=== PATIENT | female | born 1945 | race Caucasian/White ===

== ENCOUNTER 2017-05-19 19:02 | Observation (INO) ==
[2017-05-19] MEDS ORDERED: 0.9 % Sodium Chloride 1,000 ML IVC ONE (19:30)
[2017-05-19] MEDS ORDERED: Acetaminophen 325 MG TABLET PO ONE (19:30)
--- NOTE | 2017-05-19 19:39 | Emergency Department Note ---
Disposition Clinical Impression: Chest pain, Weakness, Weight loss, Lightheaded Disposition: Admitted As Inpatient Condition: Fair Referrals: NONE,PCP [Non-Partnered Physician] - Forms: ED Satisfaction Letter Time of Disposition: 21:06 Weakness HPI - General Chief complaint: ED Weakness Stated complaint: just do not feel good Time Seen by Provider: 05/19/17 19:14 Source: patient Mode of arrival: ambulatory Limitations: no limitations Nursing Notes Reviewed: Yes Vital Signs Reviewed: Yes - History of Present Illness HPI Narrative: Patient presents to the ED with multiple complaints. Patient reports no significant past medical history and takes no daily medications. She states that she has a history of atrial fibrillation for which she was cardioverted out of one year ago. He states that over the last 2 weeks she has felt like she was in A. fib again. She complains of generalized weakness, fatigue, 30 pound weight loss over the last 3 weeks. She states that she started taking prednisone 2 weeks ago for poison margy rash and since taking the prednisone. Her symptoms have worsened. She complains of feeling lightheaded and having a sound in her head gets louder when "something is not right with my body". She also complains of intermittent, little headaches" in which she has never had headaches before. These are poorly localized and she is really unable to elaborate any further other than saying that her head hurts at times. She had no changes in vision or fever. She has had some intermittent chest "fullness" that is midsternal, nonradiating, exertional. No current pain. She short of breath at baseline and no different than usual. She complains of intermittent, crampy lower abdominal pain at times and had several episodes of nonbloody diarrhea last week. She does complain of some nausea but no vomiting. She states that she has back pain and that flares up at times. She states that she just does not feel right and she knows something is wrong, but she just does not know what it is. Pain Scale: 0 - Related Data Home Medications Medication Instructions Recorded Confirmed Aspirin Enteric Coated [Aspirin EC] 81 mg PO DAILY 08/20/15 05/19/17 Cinnamon Bark [Cinnamon] 500 mg PO DAILY 08/20/15 05/19/17 [place] Oil/[place]-3 Fatty Acids 1 each PO DAILY 08/20/15 05/19/17 [Fish Oil 500 mg Softgel] TraMADol [Ultram] 50 mg PO BID PRN 08/20/15 05/19/17 Ubidecarenone [Co Q-10] 10 mg PO DAILY 08/20/15 05/19/17 Calcium Carbonate/Vitamin D3 1 each PO DAILY 05/19/17 05/19/17 [Calcium 500-Vit D3 200 Tablet] Esomeprazole Magnesium [Nexium 22.3 mg PO DAILY 05/19/17 05/19/17 24Hr] Multivitamin [Multi-Day Vitamins] 1 each PO DAILY 05/19/17 05/19/17 Allergies Allergy/AdvReac Type Severity Reaction Status Date / Time No Known Allergies Allergy Verified 08/20/15 15:24 All systems ED: reviewed and negative except as stated. Constitutional: Reports: weakness, weight change Cardiovascular: Reports: chest pain, dyspnea on exertion Respiratory: Reports: dyspnea Gastrointestinal: Reports: abdominal pain, nausea, diarrhea Musculoskeletal: Reports: back pain Neurological: Reports: headache Psychiatric: Reports: anxiety Endocrine: Reports: fatigue Past Medical History - Past Medical History Medical history: Reports: diabetes, GERD Surgical history: Reports: other Psychiatric history: Reports: no psych history - Social History Smoking Status: Never smoker Smokeless Tobacco Status: No Alcohol use: Reports: none Drug use: Reports: none Physical Exam - General Limitations: no limitations General appearance: alert, anxious - Head Head exam: atraumatic, normocephalic, normal inspection - Eye Eye exam: Present: normal appearance, PERRL, EOMI - ENT ENT exam: normal exam, normal oropharynx, mucous membranes dry - Neck Neck exam: Present: normal inspection, full ROM, trachea midline - Chest Chest inspection: Present: normal inspection, symmetric chest wall rise - Respiratory Respiratory exam: Present: normal lung sounds bilaterally - Cardiovascular Cardiovascular exam: Present: regular rate, normal rhythm, normal heart sounds - Abdominal Exam Abdominal exam: Present: soft, Non-Tender, other (obese). Absent: tenderness, distention, guarding, rebound, rigidity - Extremities Exam Extremities exam: Present: normal inspection, full ROM. Absent: tenderness - Neurological Exam Neurological exam: Present: alert, oriented X3, CN II-XII intact - Expanded Neurological Exam Patient oriented to: Present: person, place, time Speech: Present: fluid speech Cranial nerves: EOM function (II, III, IV, ): Normal, facial sensation (V): Normal, facial palsy (VII): Normal, spinal accessory function (XI): Normal, tongue deviation (XII): Normal Cerebellar function: heel to guzmán: Normal Motor strength - LUE: 5/5 Motor strength - RUE: 5/5 Motor strength - LLE: 5/5 Motor strength - RLE: 5/5 Upper motor neuron exam: palma neglect: Absent bilaterally, pronator drift: Absent bilaterally Sensory exam upper extremity: light touch: Normal Sensory exam lower extremity: light touch: Normal Coma Scale Eye Opening: Spontaneous Coma Scale Motor Response: Obeys Commands Coma Scale Verbal Response: Oriented Coma Scale Total: 15 - Psychiatric Psychiatric exam: Present: normal affect, normal mood - Skin Skin exam: Present: warm, dry, intact, normal color Course Course Narrative: 71 y/o F p/w CP, fatigue, weight loss, and lightheaded. Neuro exam NL. Cardiac workup, head CT and admit Vital Signs Temperature 98.0 F 05/19/17 19:03 Pulse Rate 88 05/19/17 19:03 Respiratory Rate 20 05/19/17 19:03 Blood Pressure 156/85 05/19/17 19:03 O2 Sat by Pulse Oximetry 99 05/19/17 19:03 Temperature 98.0 F 05/19/17 19:03 Pulse Rate 74 05/19/17 20:30 Respiratory Rate 20 05/19/17 19:03 Blood Pressure 126/73 05/19/17 20:30 O2 Sat by Pulse Oximetry 99 05/19/17 20:30 Oxygen Delivery Oxygen Delivery Room Air Weakness - Medical Records Medical records reviewed: Yes I reviewed the patient's medical records. - Lab Data Lab results reviewed: Yes I reviewed the patient's lab results. Result diagrams: 05/19/17 20:04 05/19/17 20:04 Lab Results 05/19/17 05/19/17 05/19/17 Range/Units 20:04 20:04 20:04 WBC 6.5 (4.3-11.1) K/mcL RBC 4.34 (3.82-4.97) M/mcL Hgb 14.4 (11.5-15.4) g/dL Hct 43.2 (35.3-44.9) % MCV 99.5 (83.0-100.0) fL MCH 33.2 (28.0-33.3) pg MCHC 33.3 (31.6-35.5) g/dL RDW 12.5 (11.5-14.5) % Plt Count 240 (140-400) K/mcL MPV 9.8 (9.4-12.4) fL Immature Gran % 0.2 (0-4) % Seg Neutrophils % 58.0 % Lymphocytes % 29.1 % Monocytes % 10.1 % Eosinophils % 2.3 % Basophils % 0.3 % Neutrophils # 3.8 (1.6-8.9) K/mcL Lymphocytes # 1.9 (0.6-4.6) K/mcL Monocytes # 0.7 (0.0-1.3) K/mcL Eosinophils # 0.2 (0.0-0.6) K/mcL Basophils # 0.0 (0.0-0.2) K/mcL Sodium 140 (136-145) mEq/L Potassium 4.1 (3.5-4.5) mEq/L Chloride 106 (98-109) mEq/L Carbon Dioxide 25 (19-29) mEq/L BUN 14 (7-20) mg/dL Creatinine 1.08 (0.57-1.11) mg/dL Est GFR ( Amer) > 60 (> 60) Est GFR (Non-Af Amer) 50 L (> 60) BUN/Creatinine Ratio 13 (6-26) Glucose 98 (70-99) mg/dL Calculated Osmolality 290 (280-300) Calcium 10.3 (8.6-10.8) mg/dL Ionized Calcium 1.19 (1.15-1.35) mmol/L Phosphorus 2.7 (2.3-4.7) mg/dL Magnesium 1.8 (1.6-2.6) mg/dL Total Bilirubin 0.4 (0.2-1.2) mg/dL AST 33 (5-34) Units/L ALT 28 (0-55) Units/L Alkaline Phosphatase 77 (38-126) Units/L Troponin I 0.00 (0-0.03) ng/mL Serum Total Protein 7.5 (6.0-8.3) g/dL Albumin 3.8 (3.5-5.0) g/dL Globulin 3.7 H (2.4-3.5) g/dL Albumin/Globulin Ratio 1.0 L (1.1-2.2) Lipase (8-78) Units/L Urine Color (Yellow) Urine Clarity (Clear) Urine pH (5.0-8.0) pH Units Ur Specific [place] (1.010-1.025) Urine Protein (Neg-Trace) mg/dL Urine Glucose (UA) (Normal) mg/dL Urine Ketones (Negative) mg/dL Urine Blood (Negative) Urine Nitrite (Negative) Urine Bilirubin (Negative) Urine Urobilinogen (Normal) mg/dL Ur Leukocyte Esterase (Negative) Urine Microscopic RBC (0-3) per hpf Urine Microscopic WBC (0-3) per hpf Ur Squamous Epith Cells (None-Few) per lpf Urine Bacteria (None-Few) per hpf Hyaline Casts (None-Few) per lpf Ur Culture Indicated? (NO) 05/19/17 05/19/17 Range/Units 20:04 20:10 WBC (4.3-11.1) K/mcL RBC (3.82-4.97) M/mcL Hgb (11.5-15.4) g/dL Hct (35.3-44.9) % MCV (83.0-100.0) fL MCH (28.0-33.3) pg MCHC (31.6-35.5) g/dL RDW (11.5-14.5) % Plt Count (140-400) K/mcL MPV (9.4-12.4) fL Immature Gran % (0-4) % Seg Neutrophils % % Lymphocytes % % Monocytes % % Eosinophils % % Basophils % % Neutrophils # (1.6-8.9) K/mcL Lymphocytes # (0.6-4.6) K/mcL Monocytes # (0.0-1.3) K/mcL Eosinophils # (0.0-0.6) K/mcL Basophils # (0.0-0.2) K/mcL Sodium (136-145) mEq/L Potassium (3.5-4.5) mEq/L Chloride (98-109) mEq/L Carbon Dioxide (19-29) mEq/L BUN (7-20) mg/dL Creatinine (0.57-1.11) mg/dL Est GFR ( Amer) (> 60) Est GFR (Non-Af Amer) (> 60) BUN/Creatinine Ratio (6-26) Glucose (70-99) mg/dL Calculated Osmolality (280-300) Calcium (8.6-10.8) mg/dL Ionized Calcium (1.15-1.35) mmol/L Phosphorus (2.3-4.7) mg/dL Magnesium (1.6-2.6) mg/dL Total Bilirubin (0.2-1.2) mg/dL AST (5-34) Units/L ALT (0-55) Units/L Alkaline Phosphatase (38-126) Units/L Troponin I (0-0.03) ng/mL Serum Total Protein (6.0-8.3) g/dL Albumin (3.5-5.0) g/dL Globulin (2.4-3.5) g/dL Albumin/Globulin Ratio (1.1-2.2) Lipase 20 (8-78) Units/L Urine Color Yellow (Yellow) Urine Clarity Cloudy A (Clear) Urine pH 6.0 (5.0-8.0) pH Units Ur Specific [place] 1.018 (1.010-1.025) Urine Protein Negative (Neg-Trace) mg/dL Urine Glucose (UA) Normal (Normal) mg/dL Urine Ketones Negative (Negative) mg/dL Urine Blood Negative (Negative) Urine Nitrite Negative (Negative) Urine Bilirubin Negative (Negative) Urine Urobilinogen Normal (Normal) mg/dL Ur Leukocyte Esterase Large H (Negative) Urine Microscopic RBC 0-3 (0-3) per hpf Urine Microscopic WBC 15-30 H (0-3) per hpf Ur Squamous Epith Cells Many H (None-Few) per lpf Urine Bacteria None Seen (None-Few) per hpf Hyaline Casts None Seen (None-Few) per lpf Ur Culture Indicated? YES A (NO) - Radiology Data Radiology results reviewed: Yes I reviewed the patient's radiology results. - EKG Data EKG attestation: Yes I reviewed and interpreted this EKG. EKG results narrative: Sinus rhythm, rate 80, MO interval 169, QRS 88, QTC 399, borderline left axis deviation, no acute ischemic changes from previous on 06/02/16 S.B.A.R. - S.B.A.R. Situation: Demographics, MOA Background: Presenting Complaint, Relevant PMH, Meds, & Allergies Assessment: Vital Signs, Course and respsone to treatment, Exam Concerns, Patient/Family Expectation, Pertinant Lab Results, Outstanding Labs Recommendation: Barrier(s) to disposition, Recommendation based on pending studies, treatments, or consults [facility] Report Given to: Dr. Yvette Petersen Repor Time: 21:06 Attestation Statement - Attestation Attestation: I, Misael Wilson, examined this patient and my medical decision-making was reviewed with the TOURIST ESCORT/PA/Advanced Practice Nurse/Resident Physician. I agree with the documented findings, disposition and treatment plan as described except to the extent set forth below. 71-year-old female presents with concerns of generalized malaise, weakness, fatigue and intermittent chest pressure 1 week. Patient states the pain occurs intermittently during the day and generally resolves with rest at night. Patient reports 20 pound history of weight loss over the past 2 months without dieting. Patient states she was started on prednisone 1 week ago for poison margy and seems to feel that this is when her symptoms worsened. Patient reports headache intermittently over the past week as well. Denies focal neurologic weakness. CT of the head and chest x-ray did not reveal acute pathology. EKG showed normal sinus rhythm with rate of 80 without evidence of STEMI or ischemia or other arrhythmia. Laboratory results are pending at this time. Patient will likely be admitted to the hospital for further care and evaluation of weight loss and chest pain.
[2017-05-19 20:23] LABS: Bilirubin,Urine Negative (Negative); Blood,Urine Negative (Negative); Clarity,Urine Cloudy (Clear); Color,Urine Yellow (Yellow); Glucose,Urine (UA) Normal (Normal); Ketones,Urine Negative (Negative); Leukocyte Esterase,Urine Large (Negative); Nitrite,Urine Negative (Negative); Protein,Urine Negative (Neg-Trace); Specific Gravity,Urine 1.018 (1.010-1.025); Urobilinogen,Urine Normal (Normal)
[2017-05-19 20:24] LABS: Bacteria,Urine None Seen per hpf (None-Few); Hyaline Casts,Urine None Seen per lpf (None-Few); RBC,Urine 0-3 per hpf (0-3); Squamous Epithelial Cell,Urine Many per lpf (None-Few); WBC,Urine 15-30 per hpf (0-3)
[2017-05-19 20:31] LABS: Basophils % 0.3 %; Eosinophils # 0.2 K/mcL (0.0-0.6); Eosinophils % 2.3 %; Hematocrit 43.2 % (35.3-44.9); Hemoglobin 14.4 g/dL (11.5-15.4); Immature Granulocytes % 0.2 % (0-4); Lymphocytes # 1.9 K/mcL (0.6-4.6); Lymphocytes % 29.1 %; Mean Corpuscular HGB Conc 33.3 g/dL (31.6-35.5); Mean Corpuscular Hemoglobin 33.2 pg (28.0-33.3); Mean Corpuscular Volume 99.5 fL (83.0-100.0); Mean Platelet Volume 9.8 fL (9.4-12.4); Monocytes # 0.7 K/mcL (0.0-1.3); Monocytes % 10.1 %; Neutrophils # 3.8 K/mcL (1.6-8.9); Platelet Count 240 K/mcL (140-400); Red Blood Count 4.34 M/mcL (3.82-4.97); Red Cell Distribution Width 12.5 % (11.5-14.5)
[2017-05-19 20:39] LABS: Ionized Calcium 1.19 mmol/L (1.15-1.35)
[2017-05-19 20:50] LABS: Alanine Aminotransferase 28 Units/L (0-55); Albumin 3.8 g/dL (3.5-5.0); Alkaline Phosphatase 77 Units/L (38-126); Aspartate Amino Transferase 33 Units/L (5-34); BUN/Creatinine Ratio 13 (6-26); Bilirubin,Total 0.4 mg/dL (0.2-1.2); Blood Urea Nitrogen 14 mg/dL (7-20); Calcium 10.3 mg/dL (8.6-10.8); Carbon Dioxide 25 mEq/L (19-29); Chloride 106 mEq/L (98-109); Globulin 3.7 g/dL (2.4-3.5); Glucose 98 mg/dL (70-99); Magnesium 1.8 mg/dL (1.6-2.6); Osmolality,Calculated 290 (280-300); Phosphorous 2.7 mg/dL (2.3-4.7); Potassium 4.1 mEq/L (3.5-4.5); Sodium 140 mEq/L (136-145); Total Protein 7.5 g/dL (6.0-8.3); eGFR For African Americans > 60 (> 60); eGFR For Non-African Americans 50 (> 60)
[2017-05-19] MEDS ORDERED: Aspirin 325 MG TABLET PO ONE (21:01)
[2017-05-19 21:12] LABS: Thyroid Stimulating Hormone 1.221 mcIU/mL (0.350-4.840)
[2017-05-19] MEDS ORDERED: traMADol 50 MG TABLET PO PRN (22:09)
[2017-05-19] MEDS ORDERED: Naloxone 0.4 MG/ML INJ IVP PRN (22:10)
--- NOTE | 2017-05-19 22:16 | Internal Med History&Physical ---
Date of Encounter: 05/19/17 Time of Encounter: 22:13 Assessment and Plan (1) Lightheaded Current visit: Yes Status: Acute See H/P (constellation of symptoms - hissing sound, lightheadness, anxiety/ nervous), could be related to prednisone which is now discontinued. Plan to R/o intermittent arrhythmias, start tele , r/o arrhythmias. consult card to eval for possible holter if inpatient tele be uneventful (2) Weight loss Current visit: Yes Status: Acute uncertain etiology, check TSH, FT4 Internal Medicine - H&P: HPI Chief complaint: feeling bad History of present illness: Ms. Chavez is a 71 year old female who reports a hx of AFib s/p ablation on 81 ASA who presents with 1-2 week hx of not feeling well after completing a tapering course of prednisone for poison margy last week. She reported a constellation of non-specific symptoms including feeling nervous/anxious, hissing sound in her ears, sensation of chest fullness and light headedness. Also reports that stomach feels weird from prednisone. Importantly, she reported that her current symptoms felt similar to her prior symptoms when she developed arrhythmia. She reports being established with the cardiology group locally. EKG reviewed by self with rate 80, nSR On review, she reports non-intentional weight loss of 20 lbs in the last 3 months Past Med Surg Social Fam HX - Past Medical History Medical history: diabetes, GERD Psychiatric history: no psych history - Past Surgical History Surgical History: other - Social History Smoking Status: Never smoker Smokeless Tobacco Status: No Alcohol use: none Drug use: none Internal Medicine - H&P: Meds Aspirin Enteric Coated [Aspirin EC] 81 mg PO DAILY 08/20/15 [History] Cinnamon Bark [Cinnamon] 500 mg PO DAILY 08/20/15 [History] [place] Oil/[place]-3 Fatty Acids [Fish Oil 500 mg Softgel] 1 each PO DAILY [History] TraMADol [Ultram] 50 mg PO BID PRN 08/20/15 [History] Ubidecarenone [Co Q-10] 10 mg PO DAILY 08/20/15 [History] Calcium Carbonate/Vitamin D3 [Calcium 500-Vit D3 200 Tablet] 1 each PO DAILY 08/25 [History] Esomeprazole Magnesium [Nexium 24Hr] 22.3 mg PO DAILY 05/19/17 [History] Multivitamin [Multi-Day Vitamins] 1 each PO DAILY 05/19/17 [History] Allergies No Known Allergies Allergy (Verified 08/20/15 15:24) All Systems PM: A 10-system review of systems was performed and is negative for pertinent findings except as documented above in the HPI. Review of systems: ROS 14 point review of systems reviewed as best as possible given presentation. Pertinent positive or negative as per HPI or otherwise reviewed as negative - Constitutional Vitals: Temp Pulse Resp BP Pulse Ox 98.0 F 74 20 141/71 99 05/19/17 19:03 05/19/17 20:30 05/19/17 22:03 05/19/17 22:03 05/19/17 20:30 Exam: General - AAO x 3 Psych - Appropriate affect/speech. No agitation Eyes - JOEL. Eye lids intact. No scleral icterus ENT - Oral mucosa pink, dentition intact. External ear clear/dry/intact. No thyromegaly Heart - Sinus. RRR. S1 and S2 present. No added HS/murmurs appreciated. No elevated JVD appreciated. No calf swellings/erythema Lung - Adequate air entry b/l, No crackes/wheezes appreciated GI - Soft, non-tender. No hepatosplenomegaly/ascites. BS+ - No CVA/suprapubic tenderness or palpable bladder distension Skin - Intact. No rash/petechiae/ecchymosis. Warm extremities MSK - Joints with normal ROM. No joint swellings Internal Med - H&P Results - Labs CBC & Chem 7: 05/19/17 20:04 05/19/17 20:04
[2017-05-19] MEDS ORDERED: clonazePAM 1 MG TABLET PO ONE (23:23)
[2017-05-20] MEDS: 0.9 % Sodium Chloride 1,000 ML IVC SCH ×3 (00:42→21:53)
[2017-05-20 05:32] LABS: Basophils % 0.6 %; Eosinophils # 0.2 K/mcL (0.0-0.6); Eosinophils % 3.8 %; Hematocrit 38.8 % (35.3-44.9); Hemoglobin 12.9 g/dL (11.5-15.4); Immature Granulocytes % 0.4 % (0-4); Lymphocytes # 1.8 K/mcL (0.6-4.6); Lymphocytes % 38.4 %; Mean Corpuscular HGB Conc 33.2 g/dL (31.6-35.5); Mean Corpuscular Hemoglobin 32.9 pg (28.0-33.3); Mean Platelet Volume 9.6 fL (9.4-12.4); Monocytes # 0.5 K/mcL (0.0-1.3); Monocytes % 11.5 %; Neutrophils # 2.1 K/mcL (1.6-8.9); Platelet Count 227 K/mcL (140-400); Red Blood Count 3.92 M/mcL (3.82-4.97); Red Cell Distribution Width 12.5 % (11.5-14.5); Segmented Neutrophils % 45.3 %
[2017-05-20 05:46] LABS: BUN/Creatinine Ratio 12 (6-26); Blood Urea Nitrogen 11 mg/dL (7-20); Calcium 9.1 mg/dL (8.6-10.8); Carbon Dioxide 25 mEq/L (19-29); Chloride 111 mEq/L (98-109); Glucose 99 mg/dL (70-99); Magnesium 1.7 mg/dL (1.6-2.6); Osmolality,Calculated 293 (280-300); Potassium 3.8 mEq/L (3.5-4.5); Sodium 142 mEq/L (136-145); eGFR For African Americans > 60 (> 60); eGFR For Non-African Americans > 60 (> 60)
[2017-05-20 06:10] LABS: Thyroid Stimulating Hormone 1.473 mcIU/mL (0.350-4.840)
[2017-05-20] MEDS: Aspirin Enteric Coated 81 MG Tablet PO SCH (08:00)
[2017-05-20] MEDS: Calcium 500-Vit D3 PO SCH (08:04)
--- NOTE | 2017-05-20 17:52 | Internal Med Progress Note ---
Date of Encounter: 05/20/17 Time of Encounter: 09:30 - Assessment and plan (1) Chest pain Current Visit: Yes Status: Resolved Assessment and plan: Patient currently denies chest pain or shortness of breath but states she continues to feel very anxious and nervous. Telemetry reviewed thus far, normal sinus rhythm, will monitor. Chest x-ray negative. Head CT negative. Troponin negative 2. Will observe overnight as the patient is still symptomatic and possibly discharge tomorrow pending clinical outcomes. (2) Lightheaded Current Visit: Yes Status: Resolved (3) Weight loss Current Visit: Yes Status: Acute Assessment and plan: Patient has unintentionally lost 20 pounds over the past 3 months. Thyroid functioning normal. Unclear etiology. (4) Abnormal urinalysis Current Visit: Yes Status: Ruled-out Assessment and plan: Patient denies dysuria, urine culture negative - Subjective Interval history: Patient seen and examined. On examination, patient sitting upright on the side of her bed stating she has to void. She states she still feels "nervous." She denies shortness of breath or pain at this time. She denies dysuria. - Constitutional Vitals: Temp Pulse Resp BP Pulse Ox 98.1 F 81 16 117/70 91 05/20/17 15:06 05/20/17 15:06 05/20/17 15:06 05/20/17 15:06 05/20/17 15:06 General appearance: Present: A&O X 3, pleasant, no acute distress, answers questions appropriately - Head Head exam: Present: atraumatic, normocephalic - Eye Eye exam: Present: PERRL, conjuntiva pink, sclera anicteric Pupils: Present: PERRL - Neck Neck exam general surgery: Present: supple, trachea midline. Absent: lymphadenopathy - Respiratory Respiratory exam: Present: CTAB. Absent: accessory muscle use, rales, respiratory distress, rhonchi, wheezes - Cardiovascular Cardiovascular exam: Present: RRR, +S1, +S2. Absent: diastolic murmur, gallop, rubs, systolic murmur - GI/Abdominal GI/Abdominal exam: Present: normal bowel sounds, soft, no peritoneal signs. Absent: distended, tenderness - Extremities Exam Extremities exam: Present: warm, radial pulses palpable and symmetrical. Absent : calf tenderness, cyanotic, pedal edema - Neurological Exam Neurological exam: Present: alert, CN II-XII intact, normal gait, oriented X3, no focal deficits, strengths equal and symetr throughout. Absent: pronater drift, facial droop, speech deficit - Psychiatric Psychiatric exam: Present: anxious - Skin Skin exam: Present: dry, intact, pallor, warm Internal Medicine: Result - Labs CBC & Chem 7: 05/20/17 05:01 05/20/17 05:01 Labs: Short CBC 05/20/17 Range/Units 05:01 WBC 4.7 (4.3-11.1) K/mcL Hgb 12.9 D (11.5-15.4) g/dL Hct 38.8 (35.3-44.9) % Plt Count 227 (140-400) K/mcL Neutrophils # 2.1 (1.6-8.9) K/mcL BMP 05/20/17 05:01 Sodium 142 Potassium 3.8 Chloride 111 H Carbon Dioxide 25 BUN 11 Creatinine 0.90 Glucose 99 Calcium 9.1 Consult Discharge Plan - Plan Referrals: Hi Haney MD [Primary Care Provider] -
[2017-05-20] MEDS ORDERED: clonazePAM 1 MG TABLET PO ONE (21:05)
[2017-05-21] MEDS: 0.9 % Sodium Chloride 1,000 ML IVC SCH (04:53)
[2017-05-21 07:44] VITALS: BP 131/80
--- NOTE | 2017-05-21 09:53 | Discharge Summary ---
Date of Encounter: 05/21/17 Time of Encounter: 09:15 - Discharge Diagnosis (1) Chest pain Priority: Primary Status: Resolved Comments: patient has denied chest pain since admission. Telemetry reviewed while admitted , normal sinus rhythm. Chest x-ray negative. Head CT negative. Troponin negative 2. (2) Lightheaded Priority: Primary Status: Resolved (3) Weight loss Priority: Primary Status: Acute Comments: Patient has unintentionally lost 20 pounds over the past 3 months. Thyroid functioning normal. Unclear etiology. followup outpatient (4) Abnormal urinalysis Priority: Primary Status: Ruled-out Comments: Patient denies dysuria, urine culture negative - Discharge Medications Home Medications: Aspirin Enteric Coated [Aspirin EC] 81 mg PO DAILY 08/20/15 [History] Cinnamon Bark [Cinnamon] 500 mg PO DAILY 08/20/15 [History] [place] Oil/[place]-3 Fatty Acids [Fish Oil 500 mg Softgel] 1 each PO DAILY [History] TraMADol [Ultram] 50 mg PO BID PRN 08/20/15 [History] Ubidecarenone [Co Q-10] 10 mg PO DAILY 08/20/15 [History] Calcium Carbonate/Vitamin D3 [Calcium 500-Vit D3 200 Tablet] 1 each PO DAILY 08/25 [History] Esomeprazole Magnesium [Nexium 24Hr] 22.3 mg PO DAILY 05/19/17 [History] Multivitamin [Multi-Day Vitamins] 1 each PO DAILY 05/19/17 [History] Allergies/Adverse Reactions: Allergies No Known Allergies Allergy (Verified 08/20/15 15:24) Procedures/tests Complete & Pending: Procedures Performed prior 72 hours Category Date Time Status ECG 12 lead ECG [ECG] Routine Y 05/21/17 08:25 Ordered Date of admission: 05/19/17 21:50 Primary care physician: Hi Haney MD Discharging clinician: Lidia Crabtree Anticipated date of discharge: 05/21/17 - Patient Status Disposition: Home, Self-Care Condition: Fair Functional capacity at discharge: independent ambulation Overall status at discharge: patient is back to baseline - Discharge Instructions Follow Up With: Hi Haney MD [Primary Care Provider] - Additional Instructions: Follow-up with primary care provider within one to 2 weeks - Diet and Activity Activity: increase activity as tolerated Diet: diabetic diet Hospital course: Ms. Chavez is a 71 year old female past medical history of atrial fibrillation status post ablation on baby aspirin, diabetes, GERD. Patient presented to the emergency department chief complaint of 1-2 week history of not feeling well after completing a tapering course of prednisone for poison margy. Patient endorsed feeling nervous/anxious, hissing sound in her ears, sensation of fullness and lightheadedness. Patient also reported that her stomach felt "weird" from the prednisone. Patient stating that her symptoms. Similar to the last time when she had developed her arrhythmia. Patient also endorsed non- intentional 20 pound weight loss over the past 3 months. Workup in the emergency department unremarkable. Chest x-ray negative. Head CT negative. Patient was admitted to the hospitalist service for further evaluation and management. Patient denied chest pain throughout this admission. Troponins negative 2. On the first day of her admission, patient continued to be anxious but denies symptoms otherwise. She was observed overnight in telemetry was reviewed which revealed normal sinus rhythm. She was able to tolerate a regular diet. Regarding her unintentional weight loss, unclear causation at this time. Thyroid functioning normal, patient endorsing a normal appetite, recommend continued follow up outpatient. She had abnormal urinalysis but denied dysuria and the urine culture was negative. No focal neurological weakness is present on examination. She was discharged home in stable condition with close outpatient follow-up recommended. ITS Impressions Chest X-Ray 05/19/17 19:30 IMPRESSION: No acute abnormality. D/ / Teodoro Nguyen MD / Teodoro Nguyen MD Interpreting Provider: Teodoro Nguyen MD Head CT 05/19/17 19:31 IMPRESSION: No acute intracranial abnormality. D/ / Gene Schneider MD / Geen Schneider MD Interpreting Provider: Gene Schneider MD - Time Spent with Patient Total time spent providing and/or coordinating discharge services: - Constitutional Vitals: Temp Pulse Resp BP Pulse Ox 98.1 F 70 15 131/80 95 05/21/17 07:43 05/21/17 07:43 05/21/17 07:43 05/21/17 07:43 05/21/17 07:43 General appearance: Present: A&O X 3, pleasant, no acute distress, answers questions appropriately - Head Head exam: Present: atraumatic, normocephalic - Eye Eye exam: Present: PERRL, conjuntiva pink, sclera anicteric Pupils: Present: PERRL - Neck Neck exam general surgery: Present: supple, trachea midline. Absent: lymphadenopathy - Respiratory Respiratory exam: Present: CTAB. Absent: accessory muscle use, rales, respiratory distress, rhonchi, wheezes - Cardiovascular Cardiovascular exam: Present: RRR, +S1, +S2. Absent: diastolic murmur, gallop, rubs, systolic murmur - GI/Abdominal GI/Abdominal exam: Present: normal bowel sounds, soft, no peritoneal signs. Absent: distended, tenderness - Extremities Exam Extremities exam: Present: warm, radial pulses palpable and symmetrical. Absent : calf tenderness, cyanotic, pedal edema - Neurological Exam Neurological exam: Present: alert, CN II-XII intact, normal gait, oriented X3, no focal deficits, strengths equal and symetr throughout. Absent: pronater drift, facial droop, speech deficit - Skin Skin exam: Present: dry, intact, normal color, warm
[2017-05-21] MEDS: Calcium 500-Vit D3 PO SCH (10:05)
[2017-05-21] MEDS: Aspirin Enteric Coated 81 MG Tablet PO SCH (10:06)
--- NOTE | 2017-05-21 12:48 | Electrocardiograph Report ---
[place] [id number] Test Date: 2017-05-19 Pat Name: Adrianne Chavez Department: 102 Room: 3B Gender: F Educational Aide: : 1945 Requested By: Anshu Weaver Order Number: [id number] Reading MD: Rosemarie Reed Measurements Intervals [place] Rate: 80 P: 38 PA: 169 QRS: 59 QRSD: 88 T: 64 QT: 362 QTc: 399 Interpretive Statements SINUS RHYTHM Electronically Signed On 05-21-2017 12:46:25 EDT by Rosemarie Reed
== END 2017-05-21 10:20 | disposition home or self-care (01) ==
LOC: 3BNU 19:02 → EMEROO 19:02 → 3BNU 22:03
PROVIDERS: ADMIT Internal Medicine; ATTEND Nurse Practitioner Family

== ENCOUNTER 2017-07-17 03:30 | Observation (INO) ==
[2017-07-17] MEDS ORDERED: 0.9 % Sodium Chloride 1,000 ML IVC ONE ×2 (03:41→07:52)
[2017-07-17 03:49] LABS: Basophils % 0.3 %; Eosinophils # 0.4 K/mcL (0.0-0.6); Eosinophils % 6.3 %; Hematocrit 46.5 % (35.3-44.9); Hemoglobin 15.4 g/dL (11.5-15.4); Immature Granulocytes % 0.3 % (0-4); Lymphocytes # 2.2 K/mcL (0.6-4.6); Lymphocytes % 33.2 %; Mean Corpuscular HGB Conc 33.1 g/dL (31.6-35.5); Mean Corpuscular Hemoglobin 32.5 pg (28.0-33.3); Mean Corpuscular Volume 98.1 fL (83.0-100.0); Mean Platelet Volume 9.5 fL (9.4-12.4); Monocytes # 0.6 K/mcL (0.0-1.3); Monocytes % 9.5 %; Neutrophils # 3.3 K/mcL (1.6-8.9); Platelet Count 299 K/mcL (140-400); Red Blood Count 4.74 M/mcL (3.82-4.97); Red Cell Distribution Width 12.2 % (11.5-14.5); Segmented Neutrophils % 50.4 %
[2017-07-17 04:00] LABS: Prothrombin Time 10.2 Seconds (9.4-12.1)
[2017-07-17 04:02] LABS: Activated Partial Thrombo Time 26.2 Seconds (26.0-36.0)
[2017-07-17 04:08] LABS: Albumin 3.9 g/dL (3.5-5.0); Albumin/Globulin Ratio 1.1 (1.1-2.2); Bilirubin,Total 0.4 mg/dL (0.2-1.2); Calcium 10.3 mg/dL (8.6-10.8); Globulin 3.6 g/dL (2.4-3.5); Total Protein 7.5 g/dL (6.0-8.3)
[2017-07-17 04:09] LABS: Potassium 4.9 mEq/L (3.5-4.5)
[2017-07-17 04:50] LABS: Bilirubin,Urine Negative (Negative); Blood,Urine Negative (Negative); Clarity,Urine Cloudy (Clear); Color,Urine Yellow (Yellow); Glucose,Urine (UA) Normal (Normal); Ketones,Urine Negative (Negative); Leukocyte Esterase,Urine Moderate (Negative); Nitrite,Urine Negative (Negative); PH,Urine 5.5 pH Units (5.0-8.0); Protein,Urine Trace mg/dL (Neg-Trace); Specific Gravity,Urine 1.023 (1.010-1.025); Urobilinogen,Urine Normal (Normal)
[2017-07-17 04:52] LABS: Bacteria,Urine None Seen per hpf (None-Few); Hyaline Casts,Urine None Seen per lpf (None-Few); Squamous Epithelial Cell,Urine Many per lpf (None-Few); WBC,Urine 15-30 per hpf (0-3)
[2017-07-17] MEDS ORDERED: 0.9 % Sodium Chloride 1,000 ML ONE (05:26)
--- NOTE | 2017-07-17 06:04 | Emergency Department Note ---
Disposition Clinical Impression: Syncope and collapse Disposition: Admitted As Inpatient Condition: Good Referrals: Hi Haney MD [Primary Care Provider] - Syncope HPI - General Chief Complaint: ED Syncope Stated Complaint: syncope Time Seen by Provider: 07/17/17 03:33 Source: patient Mode of arrival: ambulatory Limitations: no limitations Nursing Notes Reviewed: Yes Vital Signs Reviewed: Yes - History of Present Illness HPI Narrative: 70-year-old female presents emergency Department with concerns of a syncopal episode. Patient states she was at work, sat down and then became lightheaded and fell to the ground. Patient states that she did not have chest pain or palpitations or shortness of breath prior to syncopized in. She initially states that she did not have history of nausea, vomiting, diarrhea that she had been eating and drinking well. On repeat evaluation patient states that she had a sore throat and had not eaten or drank very well over the past 24 hours. Patient is unclear as to when she had her last cardiac evaluation. - Related Data Home Medications Medication Instructions Recorded Confirmed Aspirin Enteric Coated [Aspirin EC] 81 mg PO DAILY 08/20/15 05/19/17 Cinnamon Bark [Cinnamon] 500 mg PO DAILY 08/20/15 05/19/17 [place] Oil/[place]-3 Fatty Acids 1 each PO DAILY 08/20/15 05/19/17 [Fish Oil 500 mg Softgel] TraMADol [Ultram] 50 mg PO BID PRN 08/20/15 05/19/17 Ubidecarenone [Co Q-10] 10 mg PO DAILY 08/20/15 05/19/17 Calcium Carbonate/Vitamin D3 1 each PO DAILY 05/19/17 05/19/17 [Calcium 500-Vit D3 200 Tablet] Esomeprazole Magnesium [Nexium 22.3 mg PO DAILY 05/19/17 05/19/17 24Hr] Multivitamin [Multi-Day Vitamins] 1 each PO DAILY 05/19/17 05/19/17 Allergies Allergy/AdvReac Type Severity Reaction Status Date / Time No Known Allergies Allergy Verified 08/20/15 15:24 All systems ED: reviewed and negative except as stated. Review of Systems: As Per HPI Constitutional: Reports: weakness. Denies: fever, chills Cardiovascular: Reports: syncope. Denies: chest pain, palpitations Respiratory: Denies: cough, dyspnea, wheezes Gastrointestinal: Denies: abdominal pain, nausea, vomiting Genitourinary: Denies: urgency, dysuria, frequency Past Medical History - Past Medical History Attestation: Yes The following information was validated with the patient. Source: patient Medical history: Reports: diabetes, GERD Surgical history: Reports: other Psychiatric history: Reports: no psych history - Social History Smoking Status: Never smoker Smokeless Tobacco Status: No Alcohol use: Reports: none Drug use: Reports: none Physical Exam General: Alert and in no acute distress Skin: Warm, dry, intact Head: Normocephalic and atraumatic Neck: Supple, trachea midline and no tenderness Cardiovascular: Normal perfusion to bilateral upper and lower extremities. Patient tachycardic with standing Respiratory: CTAB, no wheezing, cough, or respiratory distress Musculoskeletal: Normal strength, no tenderness, swelling or deformity GI: Soft, nontender, nondistended. Bowel sounds present Neuro: A&O to person, place, time and situation. No focal deficits noted on exam Psychiatric: cooperative and appropriate mood and affect. - General Limitations: no limitations General appearance: alert Course Vital Signs Temperature 97.6 F 07/17/17 03:32 Pulse Rate 84 07/17/17 03:32 Respiratory Rate 24 07/17/17 03:32 Blood Pressure 112/82 07/17/17 03:32 O2 Sat by Pulse Oximetry 97 07/17/17 03:32 Temperature 97.6 F 07/17/17 03:32 Pulse Rate 75 07/17/17 05:18 Respiratory Rate 20 07/17/17 05:18 Blood Pressure 125/77 07/17/17 05:18 O2 Sat by Pulse Oximetry 98 07/17/17 05:18 Oxygen Delivery Oxygen Delivery Room Air Syncope - [facility] Narrative Medical decision making narrative: Likely patient's symptoms are secondary to hypovolemia however patient had does not have a history of vasovagal syncope in the past. Patient was given a liter of IV fluids and felt improved however she became near syncopal with standing. Patient will be admitted to the hospital for further care and evaluation and likely echo. Initial troponin negative. Patient feels comfortable with the plan for admission to hospital. - Medical Records Medical records reviewed: Yes I reviewed the patient's medical records. - Lab Data Lab results reviewed: Yes I reviewed the patient's lab results. Result diagrams: 07/17/17 03:35 07/17/17 03:35 Lab Results 07/17/17 07/17/17 07/17/17 Range/Units 03:35 03:35 03:35 WBC 6.6 (4.3-11.1) K/mcL RBC 4.74 (3.82-4.97) M/mcL Hgb 15.4 (11.5-15.4) g/dL Hct 46.5 H (35.3-44.9) % MCV 98.1 (83.0-100.0) fL MCH 32.5 (28.0-33.3) pg MCHC 33.1 (31.6-35.5) g/dL RDW 12.2 (11.5-14.5) % Plt Count 299 (140-400) K/mcL MPV 9.5 (9.4-12.4) fL Immature Gran % 0.3 (0-4) % Seg Neutrophils % 50.4 % Lymphocytes % 33.2 % Monocytes % 9.5 % Eosinophils % 6.3 % Basophils % 0.3 % Neutrophils # 3.3 (1.6-8.9) K/mcL Lymphocytes # 2.2 (0.6-4.6) K/mcL Monocytes # 0.6 (0.0-1.3) K/mcL Eosinophils # 0.4 (0.0-0.6) K/mcL Basophils # 0.0 (0.0-0.2) K/mcL PT 10.2 (9.4-12.1) Seconds INR 1.0 APTT 26.2 (26.0-36.0) Seconds Sodium 140 (136-145) mEq/L Potassium 4.9 H (3.5-4.5) mEq/L Chloride 108 (98-109) mEq/L Carbon Dioxide 22 (19-29) mEq/L BUN 20 (7-20) mg/dL Creatinine 1.24 H (0.57-1.11) mg/dL Est GFR ( Amer) 51 L (> 60) Est GFR (Non-Af Amer) 42 L (> 60) BUN/Creatinine Ratio 16 (6-26) Glucose 129 H (70-99) mg/dL Calculated Osmolality 294 (280-300) Lactic Acid (0.5-2.2) mmol/L Calcium 10.3 (8.6-10.8) mg/dL Total Bilirubin 0.4 (0.2-1.2) mg/dL AST 31 (5-34) Units/L ALT 27 (0-55) Units/L Alkaline Phosphatase 87 (38-126) Units/L Creatine Kinase 94 (29-168) Units/L Troponin I (0-0.03) ng/mL Serum Total Protein 7.5 (6.0-8.3) g/dL Albumin 3.9 (3.5-5.0) g/dL Globulin 3.6 H (2.4-3.5) g/dL Albumin/Globulin Ratio 1.1 (1.1-2.2) Urine Color (Yellow) Urine Clarity (Clear) Urine pH (5.0-8.0) pH Units Ur Specific [place] (1.010-1.025) Urine Protein (Neg-Trace) mg/dL Urine Glucose (UA) (Normal) mg/dL Urine Ketones (Negative) mg/dL Urine Blood (Negative) Urine Nitrite (Negative) Urine Bilirubin (Negative) Urine Urobilinogen (Normal) mg/dL Ur Leukocyte Esterase (Negative) Urine Microscopic RBC (0-3) per hpf Urine Microscopic WBC (0-3) per hpf Ur Squamous Epith Cells (None-Few) per lpf Urine Bacteria (None-Few) per hpf Hyaline Casts (None-Few) per lpf Specimen Rejected 07/17/17 07/17/17 07/17/17 Range/Units 03:35 03:51 04:16 WBC (4.3-11.1) K/mcL RBC (3.82-4.97) M/mcL Hgb (11.5-15.4) g/dL Hct (35.3-44.9) % MCV (83.0-100.0) fL MCH (28.0-33.3) pg MCHC (31.6-35.5) g/dL RDW (11.5-14.5) % Plt Count (140-400) K/mcL MPV (9.4-12.4) fL Immature Gran % (0-4) % Seg Neutrophils % % Lymphocytes % % Monocytes % % Eosinophils % % Basophils % % Neutrophils # (1.6-8.9) K/mcL Lymphocytes # (0.6-4.6) K/mcL Monocytes # (0.0-1.3) K/mcL Eosinophils # (0.0-0.6) K/mcL Basophils # (0.0-0.2) K/mcL PT (9.4-12.1) Seconds INR APTT (26.0-36.0) Seconds Sodium (136-145) mEq/L Potassium (3.5-4.5) mEq/L Chloride (98-109) mEq/L Carbon Dioxide (19-29) mEq/L BUN (7-20) mg/dL Creatinine (0.57-1.11) mg/dL Est GFR ( Amer) (> 60) Est GFR (Non-Af Amer) (> 60) BUN/Creatinine Ratio (6-26) Glucose (70-99) mg/dL Calculated Osmolality (280-300) Lactic Acid 2.5 H (0.5-2.2) mmol/L Calcium (8.6-10.8) mg/dL Total Bilirubin (0.2-1.2) mg/dL AST (5-34) Units/L ALT (0-55) Units/L Alkaline Phosphatase (38-126) Units/L Creatine Kinase (29-168) Units/L Troponin I 0.00 (0-0.03) ng/mL Serum Total Protein (6.0-8.3) g/dL Albumin (3.5-5.0) g/dL Globulin (2.4-3.5) g/dL Albumin/Globulin Ratio (1.1-2.2) Urine Color (Yellow) Urine Clarity (Clear) Urine pH (5.0-8.0) pH Units Ur Specific [place] (1.010-1.025) Urine Protein (Neg-Trace) mg/dL Urine Glucose (UA) (Normal) mg/dL Urine Ketones (Negative) mg/dL Urine Blood (Negative) Urine Nitrite (Negative) Urine Bilirubin (Negative) Urine Urobilinogen (Normal) mg/dL Ur Leukocyte Esterase (Negative) Urine Microscopic RBC (0-3) per hpf Urine Microscopic WBC (0-3) per hpf Ur Squamous Epith Cells (None-Few) per lpf Urine Bacteria (None-Few) per hpf Hyaline Casts (None-Few) per lpf Specimen Rejected Hemolyzed 07/17/17 Range/Units 04:40 WBC (4.3-11.1) K/mcL RBC (3.82-4.97) M/mcL Hgb (11.5-15.4) g/dL Hct (35.3-44.9) % MCV (83.0-100.0) fL MCH (28.0-33.3) pg MCHC (31.6-35.5) g/dL RDW (11.5-14.5) % Plt Count (140-400) K/mcL MPV (9.4-12.4) fL Immature Gran % (0-4) % Seg Neutrophils % % Lymphocytes % % Monocytes % % Eosinophils % % Basophils % % Neutrophils # (1.6-8.9) K/mcL Lymphocytes # (0.6-4.6) K/mcL Monocytes # (0.0-1.3) K/mcL Eosinophils # (0.0-0.6) K/mcL Basophils # (0.0-0.2) K/mcL PT (9.4-12.1) Seconds INR APTT (26.0-36.0) Seconds Sodium (136-145) mEq/L Potassium (3.5-4.5) mEq/L Chloride (98-109) mEq/L Carbon Dioxide (19-29) mEq/L BUN (7-20) mg/dL Creatinine (0.57-1.11) mg/dL Est GFR ( Amer) (> 60) Est GFR (Non-Af Amer) (> 60) BUN/Creatinine Ratio (6-26) Glucose (70-99) mg/dL Calculated Osmolality (280-300) Lactic Acid (0.5-2.2) mmol/L Calcium (8.6-10.8) mg/dL Total Bilirubin (0.2-1.2) mg/dL AST (5-34) Units/L ALT (0-55) Units/L Alkaline Phosphatase (38-126) Units/L Creatine Kinase (29-168) Units/L Troponin I (0-0.03) ng/mL Serum Total Protein (6.0-8.3) g/dL Albumin (3.5-5.0) g/dL Globulin (2.4-3.5) g/dL Albumin/Globulin Ratio (1.1-2.2) Urine Color Yellow (Yellow) Urine Clarity Cloudy A (Clear) Urine pH 5.5 (5.0-8.0) pH Units Ur Specific [place] 1.023 (1.010-1.025) Urine Protein Trace (Neg-Trace) mg/dL Urine Glucose (UA) Normal (Normal) mg/dL Urine Ketones Negative (Negative) mg/dL Urine Blood Negative (Negative) Urine Nitrite Negative (Negative) Urine Bilirubin Negative (Negative) Urine Urobilinogen Normal (Normal) mg/dL Ur Leukocyte Esterase Moderate H (Negative) Urine Microscopic RBC 3-5 H (0-3) per hpf Urine Microscopic WBC 15-30 H (0-3) per hpf Ur Squamous Epith Cells Many H (None-Few) per lpf Urine Bacteria None Seen (None-Few) per hpf Hyaline Casts None Seen (None-Few) per lpf Specimen Rejected - Radiology Data Radiology results reviewed: Yes I reviewed the patient's radiology results. - EKG Data EKG attestation: Yes I reviewed and interpreted this EKG. EKG results narrative: ECG - interpreted by ED physician. Rate 82, normal sinus rhythm, no STEMI, ID, QT intervals, and QRS within normal limits.
[2017-07-17] MEDS ORDERED: traMADol 50 MG TABLET PO PRN (07:47)
[2017-07-17] MEDS ORDERED: Naloxone 0.4 MG/ML INJ IVP PRN (07:48)
--- NOTE | 2017-07-17 07:54 | Internal Med History&Physical ---
Date of Encounter: 07/17/17 Time of Encounter: 07:53 Assessment and Plan (1) Syncope and collapse Current visit: Yes Status: Acute Suspect secondary to decreased fluid intake related to URI. IV fluids, bolus Telemetry PT Orthostats Close observation (2) URI (upper respiratory infection) Current visit: Yes Status: Acute Symptomatic control with Claritin, Cepacol, IV fluids, azithromycin IV Qualifiers: URI type: unspecified viral URI Qualified Code(s): J06.9 - Acute upper respiratory infection, unspecified; B97.89 - Other viral agents as the cause of diseases classified elsewhere; B97.89 - Other viral agents as the cause of diseases classified elsewhere (3) Paroxysmal a-fib Current visit: Yes Status: Acute hx of AFib on aspirin. Now s/p cardioversion and in NSR Internal Medicine - H&P: HPI Chief complaint: Syncope History of present illness: Ms. Chavez is a 71 year old female who presents with dizziness, syncopal episode. She was at work at [employer] this morning at 2:30 AM when she felt lightheaded and passed out on the floor. She describes that her vision became glassy and that she denies any dizziness or vertigo. It was reported that when she syncopized she developed loss of bowels and bladder control. She denies any seizure history prior reports of any seizure-like activity during episode of syncope. On review she she has been sick since Monday described as a cold with sore throat, nasal congestion associated with decreased by mouth intake. She has been taking lomp-hnz-[id number] medicines for her symptoms. As such, she has been feeling under the weather recently. She has a history of atrial fibrillation status post cardioversion 2 years ago. EKG personally reviewed with rate of 82, normal sinus rhythm Head CT and chest x-ray in the ED also reviewed with out acute findings Past Med Surg Social Fam HX - Past Medical History Medical history: atrial fibrillation, diabetes, GERD Psychiatric history: no psych history - Past Surgical History Surgical History: other - Social History Smoking Status: Never smoker Smokeless Tobacco Status: No Alcohol use: none Drug use: none - Family History Father Living Status: Hx Family Cardiac Disorders: Yes (CHF) Hx Family Neurologic Disorders: Yes (CVA) Internal Medicine - H&P: Meds Aspirin Enteric Coated [Aspirin EC] 81 mg PO DAILY 08/20/15 [History] Cinnamon Bark [Cinnamon] 500 mg PO DAILY 08/20/15 [History] [place] Oil/[place]-3 Fatty Acids [Fish Oil 500 mg Softgel] 1 each PO DAILY [History] TraMADol [Ultram] 50 mg PO BID PRN 08/20/15 [History] Ubidecarenone [Co Q-10] 10 mg PO DAILY 08/20/15 [History] Calcium Carbonate/Vitamin D3 [Calcium 500-Vit D3 200 Tablet] 1 each PO DAILY 08/25 [History] Esomeprazole Magnesium [Nexium 24Hr] 22.3 mg PO DAILY 05/19/17 [History] Multivitamin [Multi-Day Vitamins] 1 each PO DAILY 05/19/17 [History] 3 Allergy/AdvReac Type Severity Reaction Status Date / Time No Known Allergies Allergy Verified 08/20/15 15:24 All Systems PM: A 10-system review of systems was performed and is negative for pertinent findings except as documented above in the HPI. Review of systems: ROS 14 point review of systems reviewed as best as possible given presentation. Pertinent positive or negative as per HPI or otherwise reviewed as negative - Constitutional Vitals: Temp Pulse Resp BP Pulse Ox 97.6 F 69 17 117/75 95 07/17/17 07:42 07/17/17 07:42 07/17/17 07:42 07/17/17 07:42 07/17/17 07:42 Exam: General - AAO x 3 Psych - Appropriate affect/speech. No agitation Eyes - JOEL. Eye lids intact. No scleral icterus Neuro - No gross peripheral or central neuro deficits with intact CN 2-12 exam Heart - Sinus. RRR. S1 and S2 present. No added HS/murmurs appreciated. No elevated JVD appreciated. Lung - Adequate air entry b/l, No crackles/wheezes appreciated GI - Soft, non-tender. No hepatosplenomegaly/ascites. BS+ - No CVA/suprapubic tenderness or palpable bladder distension Skin - Intact. No rash/petechiae/ecchymosis. Warm extremities MSK - Joints with normal ROM. No joint swellings Internal Med - H&P Results - Labs CBC & Chem 7: 07/17/17 03:35 07/17/17 03:35
[2017-07-17] MEDS: Aspirin Enteric Coated 81 MG Tablet PO SCH (09:04)
[2017-07-17] MEDS: Loratadine 10 MG TABLET PO SCH (09:04)
[2017-07-17] MEDS: Multivit/Ca/Min/Fe/FA 1 TAB TABLET PO SCH (09:04)
[2017-07-17] MEDS: Azithromycin 500 MG in D5% in Water 250 ML IVPB SCH (09:05)
[2017-07-17] MEDS: (Ubidecarenone [Co Q-10] 10 MG) PO SCH (09:06)
[2017-07-17] MEDS: (Salmon Oil/Omega-3 Fatty Acids [Fish Oil 500 Mg Soft) PO SCH (09:06)
[2017-07-17] MEDS: 0.9 % Sodium Chloride 1,000 ML IVC SCH ×2 (10:19→21:15)
--- NOTE | 2017-07-17 13:16 | Electrocardiograph Report ---
[place] [id number] Test Date: 2017-07-17 Pat Name: Adrianne Chaevz Department: 103 Room: 3B63 Gender: F Hospital Medical Biller: OMAR : 1945 Requested By: Misael Wilson Order Number: [id number] Reading MD: Dot Hickey Measurements Intervals [place] Rate: 82 P: 44 MI: 164 QRS: 52 QRSD: 85 T: 50 QT: 347 QTc: 386 Interpretive Statements SINUS RHYTHM LOW QRS VOLTAGE IN PRECORDIAL LEADS [QRS DEFLECTION < 1.0 mV IN CHEST LEADS] MINIMAL ST DEPRESSION [0.025+ mV ST DEPRESSION] Nonspecific T abnormalities diffuse leads Electronically Signed On 07-17-2017 13:14:49 EDT by Dot Hickey
[2017-07-18 03:50] LABS: BUN/Creatinine Ratio 16 (6-26); Blood Urea Nitrogen 15 mg/dL (7-20); Carbon Dioxide 23 mEq/L (19-29); Chloride 113 mEq/L (98-109); Glucose 104 mg/dL (70-99); Magnesium 1.7 mg/dL (1.6-2.6); Osmolality,Calculated 293 (280-300); Potassium 4.4 mEq/L (3.5-4.5); Sodium 141 mEq/L (136-145); eGFR For African Americans > 60 (> 60); eGFR For Non-African Americans > 60 (> 60)
[2017-07-18] MEDS: *HR* Enoxaparin 40 MG/0.4 ML SYRINGE SQ SCH (05:18)
[2017-07-18] MEDS: Multivit/Ca/Min/Fe/FA 1 TAB TABLET PO SCH (08:49)
[2017-07-18] MEDS: Loratadine 10 MG TABLET PO SCH (08:49)
[2017-07-18] MEDS: Aspirin Enteric Coated 81 MG Tablet PO SCH (08:49)
[2017-07-18] MEDS: Azithromycin 500 MG in D5% in Water 250 ML IVPB SCH (08:50)
[2017-07-18] MEDS: (Salmon Oil/Omega-3 Fatty Acids [Fish Oil 500 Mg Soft) PO SCH (08:54)
[2017-07-18] MEDS: (Ubidecarenone [Co Q-10] 10 MG) PO SCH (08:54)
[2017-07-18] MEDS: 0.9 % Sodium Chloride 1,000 ML IVC SCH ×2 (11:03→21:54)
--- NOTE | 2017-07-18 18:40 | Internal Med Progress Note ---
Date of Encounter: 07/18/17 Time of Encounter: 14:35 - Assessment and plan (1) Syncope and collapse Current Visit: Yes Status: Acute Assessment and plan: Patient reports and episode at work during the night. History of seizures in the past. She said that this occurred without warning, she said she felt lightheaded and felt as if she was looking. Glass or a prism. The sensations lasted for 3-4 seconds prior to the syncopal episode. She denies shortness of breath, chest pain, diaphoresis, nausea or vomiting. She was incontinent of both bowel and bladder. Loss of consciousness lasted for an unknown duration and there was no injury. Patient denies any postictal period. She says when she began consciousness, a customer at her place of employment was holding her up and that she was alert and oriented immediately. I spoke with Dr. Trejo who has requested orthostatic vital signs every 4 hours while awake, and MRI brain, and MRA neck. Head CT was negative for any acute intracranial abnormality. Patient's EKG in the emergency department shows sinus rhythm with a rate of 82, IN interval 164, QRS of 85. There is mild ST depression in aVL. Patient has prior history of ablation for a flutter in October,. Troponin is negative. Continue telemetry Continue seizure precautions Neurology is on board Cardiology has been consulted Monitor labs and vital signs (2) Lightheaded Current Visit: Yes Status: Resolved Assessment and plan: Patient reports feeling lightheaded, as well as feeling as if she were looking through a glass or a prism immediately prior to syncopal episode. Patient denies currently. (3) URI (upper respiratory infection) Current Visit: Yes Status: Acute Assessment and plan: Patient reports recent URI symptoms including rhinorrhea and sore throat. She reports taking jlyi-out-[id number] medications for this, was unable to state what medications they were. Qualifiers: URI type: unspecified viral URI Qualified Code(s): J06.9 - Acute upper respiratory infection, unspecified; B97.89 - Other viral agents as the cause of diseases classified elsewhere; B97.89 - Other viral agents as the cause of diseases classified elsewhere (4) Paroxysmal a-fib Current Visit: Yes Status: Acute Assessment and plan: Patient is normal sinus rhythm now. Apical and radial pulses regular. Prior history of A. fib, patient is on aspirin for anticoagulation. - Time Spent With Patient less than 15 minutes - Subjective Interval history: Patient was seen and assessed at 1435 today. She is alert, oriented, seated on the side of her bed. She reports that she was at work at 2:30 this morning when she had a syncopal episode. She says a fishy felt as if she was looking through a glass and became lightheaded. She reports seeing sort of a prism, as well as feeling lightheaded for 3-4 seconds prior to syncopal episode. She denies chest pain, shortness of breath, diaphoresis. She denies hitting her head, however she is uncertain. She says when she awakened that a customer when she was working was holding her up. She reports that she was sitting in a stool next a donut case when this happened. Patient lost consciousness for unknown duration, she denies any injury. There is no postictal phase afterwards per her own history. She was incontinent of bowel and bladder. He denies any prior history of seizures, and reports her only cardiac history is notable lesion due to a flutter. She denies chest pain, nausea, vomiting, diaphoresis, abdominal pain, diarrhea, headache or blurred vision. - Constitutional Vitals: Temp Pulse Resp BP Pulse Ox 97.9 F 84 17 125/82 96 07/18/17 15:36 07/18/17 15:36 07/18/17 15:36 07/18/17 15:36 07/18/17 15:36 General appearance: Present: cooperative, A&O X 3, pleasant, no acute distress, answers questions appropriately - Head Head exam: Present: atraumatic, normal inspection, normocephalic - Eye Eye exam: Present: conjuntiva pink, sclera anicteric - Neck Neck exam general surgery: Present: supple, trachea midline. Absent: lymphadenopathy, tenderness - Respiratory Respiratory exam: Present: CTAB. Absent: accessory muscle use, rales, respiratory distress, rhonchi, stridor, wheezes - Cardiovascular Cardiovascular exam: Present: RRR, +S1, +S2. Absent: bradycardia, diastolic murmur, gallop, rubs, systolic murmur, tachycardia - GI/Abdominal GI/Abdominal exam: Present: normal bowel sounds, soft. Absent: distended, hernia, hepatomegaly, tenderness - Extremities Exam Extremities exam: Present: normal capillary refill, normal inspection, warm, radial pulses palpable and symmetrical. Absent: calf tenderness, cyanotic, pedal edema, tenderness - Neurological Exam Neurological exam: Present: alert, CN II-XII intact, oriented X3, no focal deficits. Absent: facial droop, speech deficit - Skin Skin exam: Present: dry, intact, normal color, warm. Absent: rash Internal Medicine: Result - Labs CBC & Chem 7: 07/17/17 03:35 07/18/17 03:28 Labs: BMP 07/18/17 03:28 Sodium 141 Potassium 4.4 Chloride 113 H Carbon Dioxide 23 BUN 15 Creatinine 0.91 Glucose 104 H Calcium 9.0 - ABG Interpretation ABG results: PT/INR, D-dimer PT 10.2 Seconds (9.4-12.1) 07/17/17 03:35 Consult Discharge Plan - Plan Referrals: Hi Haney MD [Primary Care Provider] -
[2017-07-19] MEDS: *HR* Enoxaparin 40 MG/0.4 ML SYRINGE SQ SCH (05:57)
[2017-07-19 06:09] LABS: Basophils % 0.5 %; Eosinophils # 0.3 K/mcL (0.0-0.6); Eosinophils % 4.4 %; Hematocrit 39.2 % (35.3-44.9); Hemoglobin 12.7 g/dL (11.5-15.4); Immature Granulocytes % 0.3 % (0-4); Lymphocytes # 1.8 K/mcL (0.6-4.6); Lymphocytes % 27.5 %; Mean Corpuscular HGB Conc 32.4 g/dL (31.6-35.5); Mean Corpuscular Hemoglobin 32.9 pg (28.0-33.3); Mean Corpuscular Volume 101.6 fL (83.0-100.0); Mean Platelet Volume 9.9 fL (9.4-12.4); Monocytes # 0.6 K/mcL (0.0-1.3); Monocytes % 8.7 %; Neutrophils # 3.9 K/mcL (1.6-8.9); Platelet Count 244 K/mcL (140-400); Red Blood Count 3.86 M/mcL (3.82-4.97); Red Cell Distribution Width 12.5 % (11.5-14.5); Segmented Neutrophils % 58.6 %
[2017-07-19] MEDS: Aspirin Enteric Coated 81 MG Tablet PO SCH (08:01)
[2017-07-19] MEDS: Multivit/Ca/Min/Fe/FA 1 TAB TABLET PO SCH (08:01)
[2017-07-19] MEDS: Azithromycin 500 MG in D5% in Water 250 ML IVPB SCH (08:02)
[2017-07-19] MEDS: 0.9 % Sodium Chloride 1,000 ML IVC SCH (08:03)
[2017-07-19] MEDS: (Salmon Oil/Omega-3 Fatty Acids [Fish Oil 500 Mg Soft) PO SCH (08:12)
[2017-07-19] MEDS: (Ubidecarenone [Co Q-10] 10 MG) PO SCH (08:12)
--- NOTE | 2017-07-19 09:36 | Neurology - Consult Note ---
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 Event was witnessed there is no reports of seizure-like movements, the patient did have aura and incontinence of bowel bladder. She does report that she has had decreased by mouth intake of fluids and recent URI. Physical exam was unremarkable and imaging including brain MRI and the MRA did not reveal any acute abnormalities. Possible patent foraminal valve seen on echocardiogram. No stroke was seen on imaging and patient syncopal event likely related to dehydration and recent illness, but cannot exclude the possibility of seizure. We will order EEG to evaluate for potential seizure activity History of Present Illness Chief complaint: Syncope HPI: Ms. Chavez is a 71 year old female with past medical history of atrial fibrillation/atrial flutter (status post ablation), diabetes, and GERD presents to [place] on 07/17/17 after having a witnessed syncopal event at her place of work. She was reportedly sitting when this occurred infiltrate vision become glassy before having her syncopal fine. There is no reports of movement or seizure-like activity when it occurred, but she did develop incontinence of bladder and bowel. She states she was unconscious for about 3-4 seconds and does not report any dizziness, lightheadedness, changes in vision, or headache. She states she does have some pain in her right leg where she fell. She does admit to chronically not drinking enough fluids and also reports cold recently. Past Med Surg Social Fam HX - Past Medical History Medical history: diabetes, GERD Psychiatric history: no psych history - Past Surgical History Surgical History: other - Social History Smoking Status: Never smoker Smokeless Tobacco Status: No Alcohol use: none Drug use: none - Family History Father Living Status: Hx Family Cardiac Disorders: Yes (CHF) Hx Family Neurologic Disorders: Yes (CVA) Medications and Allergies Aspirin Enteric Coated [Aspirin EC] 81 mg PO DAILY 08/20/15 [History] Cinnamon Bark [Cinnamon] 500 mg PO DAILY 08/20/15 [History] [place] Oil/[place]-3 Fatty Acids [Fish Oil 500 mg Softgel] 1 each PO DAILY [History] TraMADol [Ultram] 50 mg PO BID PRN 08/20/15 [History] Ubidecarenone [Co Q-10] 10 mg PO DAILY 08/20/15 [History] Calcium Carbonate/Vitamin D3 [Calcium 500-Vit D3 200 Tablet] 1 each PO DAILY 08/25 [History] Esomeprazole Magnesium [Nexium 24Hr] 22.3 mg PO DAILY 05/19/17 [History] Multivitamin [Multi-Day Vitamins] 1 each PO DAILY 05/19/17 [History] GuaiFENesin ER [Mucinex] 600 mg PO BID PRN #30 tbbp.12hr 07/19/17 [Rx] Loratadine [Claritin] 10 mg PO DAILY #30 capsule 07/19/17 [Rx] Saline Nasal [place] [[place] Nasal [place]] 44 ml NS Q4H PRN #1 bottle 07/19/17 [Rx] 3 Allergy/AdvReac Type Severity Reaction Status Date / Time No Known Allergies Allergy Verified 08/20/15 15:24 All Systems: Gen: Denies fever, denies weakness, denies fatigue CV: Denies chest pain, denies palpitations Resp: Denies shortness of breath, MSK: denies muscle weakness Neuro: Denies headache, denies confusion, denies focal weakness, denies numbness , denies tingling, denies vision changes Physical Examination - Vital Signs Vital Signs: Initial Vital Signs Temp Pulse Resp BP Pulse Ox 97.6 F 84 24 112/82 97 07/17/17 03:32 07/17/17 03:32 07/17/17 03:32 07/17/17 03:32 07/17/17 03:32 - Exam Exam: General: Cooperative, pleasant, no acute distress, alert and oriented 3, answers questions appropriately HEENT: Normocephalic, atraumatic, neck supple, trachea midline, Conjunctiva pink , sclera anicteric, EOMI, PERRL, oral mucosa moist, no orophargeal erythema or exudates Extremities: No calf tenderness, noncyanotic, no pedal edema appreciated, warm, lower extremity pulses palpable and symmetrical Neurological: Alert and oriented 3, no facial droop, no focal deficits, cranial nerves II through XII grossly intact bilaterally, finger to nose smooth and accurate, sensation to gross touch intact in upper and lower extremities bilaterally, strength 5/5 in upper and lower extremities bilaterally, DTRs 2/4 in Achilles, patellar, brachioradialis Skin: Dry, intact, normal color Results - Laboratory Findings CBC and BMP: 07/19/17 04:47 07/18/17 03:28 Abnormal lab findings: Abnormal lab results MCV 101.6 fL (83.0-100.0) H 07/19/17 04:47 Chloride 113 mEq/L (98-109) H 07/18/17 03:28 Glucose 104 mg/dL (70-99) H 07/18/17 03:28 POC Glucose 131 (58-89) H 07/18/17 20:22 Lactic Acid 2.5 mmol/L (0.5-2.2) H 07/17/17 04:16 Globulin 3.6 g/dL (2.4-3.5) H 07/17/17 03:35 Urine Clarity Cloudy (Clear) A 07/17/17 04:40 Ur Leukocyte Esterase Moderate (Negative) H 07/17/17 04:40 Urine Microscopic RBC 3-5 per hpf (0-3) H 07/17/17 04:40 Urine Microscopic WBC 15-30 per hpf (0-3) H 07/17/17 04:40 Ur Squamous Epith Cells Many per lpf (None-Few) H 07/17/17 04:40 Consult Discharge Plan - Plan Additional Instructions: Follow up with your PCP in the next 7-10 days for a follow up visit. Return to the ER as needed for any other problems or concerns, or if your symptoms return or worsen. Take your normal medications as directed. Do not take the same cold medicine again, take Claritin and use saline nasal spray for congestion, Mucinex for cough Resume your normal activities as tolerated. Referrals: Hi Haney MD [Primary Care Provider] - 08/01/17 8:30 am Prescriptions: GuaiFENesin ER [Mucinex] 600 mg PO BID PRN #30 tbbp.12hr PRN Reason: Cough Loratadine [Claritin] 10 mg PO DAILY #30 capsule Saline Nasal [place] [[place] Nasal [place]] 44 ml NS Q4H PRN #1 bottle PRN Reason: Congestion <Marilu Trejo I - Last Filed: 07/19/17 16:57> Date of Encounter: 07/19/17 Assessment and Plan (1) Syncope and collapse Current Visit: Yes Status: Acute Patient seen and examined agreed with Dr. Cole documentation. At the moment it sounds more like a syncopal event she has been getting workup will review the EEG to make sure that no interictal abnormalities I would strongly recommend that she should be evaluated by cardiology and particularly to watch for any underlying arrhythmias as the symptoms sound more like cardiac syncope than the seizure followed the patient with you thank you very much for your consultation Marilu Trejo MD History of Present Illness HPI: Ms. Chavez is a 71 year old female All Systems: A 10-system review of systems was performed and is negative for pertinent findings except as documented above in the HPI. Physical Examination - Vital Signs Vital Signs: Initial Vital Signs Temp Pulse Resp BP Pulse Ox 97.6 F 84 24 112/82 97 07/17/17 03:32 07/17/17 03:32 07/17/17 03:32 07/17/17 03:32 07/17/17 03:32 Results - Laboratory Findings CBC and BMP: 07/19/17 04:47 07/18/17 03:28 Abnormal lab findings: Abnormal lab results MCV 101.6 fL (83.0-100.0) H 07/19/17 04:47 Chloride 113 mEq/L (98-109) H 07/18/17 03:28 Glucose 104 mg/dL (70-99) H 07/18/17 03:28 POC Glucose 131 (58-89) H 07/18/17 20:22 Lactic Acid 2.5 mmol/L (0.5-2.2) H 07/17/17 04:16 Globulin 3.6 g/dL (2.4-3.5) H 07/17/17 03:35 Urine Clarity Cloudy (Clear) A 07/17/17 04:40 Ur Leukocyte Esterase Moderate (Negative) H 07/17/17 04:40 Urine Microscopic RBC 3-5 per hpf (0-3) H 07/17/17 04:40 Urine Microscopic WBC 15-30 per hpf (0-3) H 07/17/17 04:40 Ur Squamous Epith Cells Many per lpf (None-Few) H 07/17/17 04:40
--- NOTE | 2017-07-19 10:01 | Cardiology Consult Note ---
<Ayaz Carney - Last Filed: 07/19/17 11:31> Date of Encounter: 07/19/17 Time of Encounter: 09:15 Assessment and Plan (1) Syncope and collapse Current Visit: Yes Status: Acute Patient had a new onset syncopal episode on Monday morning at work. She reports lightheadedness and blurry ("glassy")vision prior to event. Reports decreased food and fluid intake since last Monday due to recent cold. EKG was independently read as NSR and compared to most recent ones in May, and January, without significant changes or signs of ischemia. Troponin levels are negative x3. CXR is negative for acute cardiopulmonary abnormalities. Echo demonstrates EF 55-60%, possible PFO, normal wall motion. CT head and Brain MRI are negative for acute infarct, masses, or bleeds. Ischemic work-up is negative. Patient's syncopal episode could be explained by dehydration from recent illness. Neurology is on board and pending EEG. No cardiac workup is necessary at this time. Cardiology is signing off. Thank you for the consult. (2) URI (upper respiratory infection) Current Visit: Yes Status: Acute The patient reports rhinorrhea and sore throat since Monday with improvement today. Continue with IV fluids and azithromycin. Qualifiers: URI type: unspecified viral URI Qualified Code(s): J06.9 - Acute upper respiratory infection, unspecified; B97.89 - Other viral agents as the cause of diseases classified elsewhere; B97.89 - Other viral agents as the cause of diseases classified elsewhere (3) Paroxysmal a-fib Current Visit: No Status: Acute The patient has history of A. flutter with ablation in October 2015. She is NSR now with regular radial pulses bilaterally. She is on aspirin for anticoagulation. (4) Dehydration Current Visit: Yes Status: Acute The patient presented with CLARK, now resolved. This is likely due to dehydration from decreased food and fluid intake. Continue with IV fluids and monitor with a.m. labs. Discussion w patient/family: The assessment and plan as outlined above was discussed with the patient and/or family members who expressed understanding and agreement. All questions were answered. Thank you for involving us in the care of your patient. Please call with any questions. History of Present Illness Consult date: 07/19/17 Consult reason: Syncopal episode 2/2 new onset seizure vs arrythmia Chief complaint: Syncopal episode History of present illness: Ms. Chavez is a 71 year old female with PMH of APadmini liz with ablation, non- compliant DM, GERD presents with syncopal episode at work 2 days ago. She reports that this has never happened before. She has had a sore throat and dry cough since last Monday and has been taking AlkaSeltzer. She has not been able to eat or drink much due to sickness. On Monday, she went to work in the morning still feeling sick, and started to feel lightheaded. She sat down and then had the syncopal episode and fell to the floor. She reports loss of consciousness for a few seconds and remembers the events well. She also reports "glassy" vision prior to incident. Her co-workers do report heard trauma, but she does not have any headaches. She denies any recent fevers, chills, chest pain, diaphoresis, shortness of breath, palpitations, jaw or shoulder pain, back pain, nausea, vomiting, diarrhea, or constipation. She denies any recent abnormal swelling or bleeds. The patient reports improvement of symptoms since arrival and administration of IV fluids. She has no further complaints. Past Med Surg Social Fam HX - Past Medical History Medical history: diabetes, GERD Psychiatric history: no psych history - Past Surgical History Surgical History: other - Social History Smoking Status: Never smoker Smokeless Tobacco Status: No Alcohol use: none Drug use: none - Family History Father Living Status: Hx Family Cardiac Disorders: Yes (CHF) Hx Family Neurologic Disorders: Yes (CVA) Medications and Allergies Aspirin Enteric Coated [Aspirin EC] 81 mg PO DAILY 08/20/15 [History] Cinnamon Bark [Cinnamon] 500 mg PO DAILY 08/20/15 [History] [place] Oil/[place]-3 Fatty Acids [Fish Oil 500 mg Softgel] 1 each PO DAILY [History] TraMADol [Ultram] 50 mg PO BID PRN 08/20/15 [History] Ubidecarenone [Co Q-10] 10 mg PO DAILY 08/20/15 [History] Calcium Carbonate/Vitamin D3 [Calcium 500-Vit D3 200 Tablet] 1 each PO DAILY 08/25 [History] Esomeprazole Magnesium [Nexium 24Hr] 22.3 mg PO DAILY 05/19/17 [History] Multivitamin [Multi-Day Vitamins] 1 each PO DAILY 05/19/17 [History] GuaiFENesin ER [Mucinex] 600 mg PO BID PRN #30 tbbp.12hr 07/19/17 [Rx] Loratadine [Claritin] 10 mg PO DAILY #30 capsule 07/19/17 [Rx] Saline Nasal [place] [[place] Nasal [place]] 44 ml NS Q4H PRN #1 bottle 07/19/17 [Rx] 3 Allergy/AdvReac Type Severity Reaction Status Date / Time No Known Allergies Allergy Verified 08/20/15 15:24 All Systems Review: A 10-system review of systems was performed and is negative for pertinent findings except as documented above in the HPI. - Constitutional Constitutional: no chills, no fever(s), no headache(s), no night sweats - EENT Eyes: blurred vision ("glassy"), no loss of vision Nose, mouth and throat: sore throat - Cardiovascular Cardiovascular: lightheadedness, syncope, no chest pain at rest, no chest pain with exertion, no diaphoresis, no irregular heart rhythm, no radiating jaw, neck or arm pain, no palpitations - Respiratory Respiratory: cough, no dyspnea, no hemoptysis, no wheezing - Gastrointestinal Gastrointestinal: no abdominal pain, no constipation, no diarrhea - Genitourinary Genitourinary: no hematuria - Musculoskeletal Musculoskeletal: other (edema 2+ bilateral lower extremities ) - Neurological Neurological: dizziness, loss of vision, syncope, no abnormal speech, no focal weakness, no memory loss, no numbness, no tingling - Hematological/Lymphatic Hematologic/Lymphatic: no easy bleeding Physical Examination Vital Signs, Last 4 Hours Temp Pulse Resp BP Pulse Ox 07/19/17 07:05 98.0 F 73 16 113/73 94 General: Conversant, No Apparent Distress HEENT: Atraumatic, Normocephaly, Mucus Membranes Moist Neck: No JVD, Normal carotid pulses Cardiac: Reg Rate and Rhythm, Normal S1 and S2, No Murmur, Other (diminished heart sounds ) Lungs: Normal Breath Sounds, No Wheeze, Rales, Rhonchi Neuro: Alert and responsive, No focal deficits noted Abdomen: Soft, Non-Tender Skin: No rashes noted on visualized skin Musculoskeletal: No Chest Wall Tenderness Extremities: No Clubbing, No Cyanosis, Normal Pulses, Other (2+ pitting edema bilateral lower extremities ) Results 07/19/17 04:47 07/18/17 03:28 Lab Results 07/19/17 04:47 WBC 6.6 Hgb 12.7 D Hct 39.2 Plt Count 244 Consult Discharge Plan - Plan Instructions: Guaifenesin (By mouth), Loratadine (By mouth), Syncope (DC), Weakness (GEN) Additional Instructions: Follow up with your PCP in the next 7-10 days for a follow up visit. Return to the ER as needed for any other problems or concerns, or if your symptoms return or worsen. Take your normal medications as directed. Do not take the same cold medicine again, take Claritin and use saline nasal spray for congestion, Mucinex for cough Resume your normal activities as tolerated. Referrals: Hi Haney MD [Primary Care Provider] - 08/01/17 8:30 am Prescriptions: GuaiFENesin ER [Mucinex] 600 mg PO BID PRN #30 tbbp.12hr PRN Reason: Cough Loratadine [Claritin] 10 mg PO DAILY #30 capsule Saline Nasal [place] [[place] Nasal [place]] 44 ml NS Q4H PRN #1 bottle PRN Reason: Congestion <Rosemarie Reed - Last Filed: 07/19/17 17:43> Date of Encounter: 07/19/17 - Attending Attestation I examined this patient and my medical decision-making was reviewed with the Resident Physician. I agree with the documented findings, disposition and treatment plan as described. Subjective: Ms. Chavez states that she wasn't feeling well over the past few days and was taking OTC medications for cough. She admits to poor oral intake. She then presented to work on Monday and started to feel lightheaded. She sat down but then remembers falling to the floor. She believes she did lose consciousness for a few seconds. She denies feeling palpitations or chest pain. She's never had syncope before. Vital signs reviewed. Agree with documented exam. Impression: 1. Syncope: Syncopal event appears to be related to her recent illness and associated poor oral intake. Her symptoms have resolved after hydration and renal function has normalized. Her ECG is without concerning findings. Average HR on telemetry has been 70-80's. Troponin negative x3. Echo demonstrates normal LV EF and RV function. Can consider holter at discharge. Otherwise, no further testing appears warranted. 2. History of AFL s/p ablation: No recurrence noted. Anticoagulation was stopped as an outpatient. She remains on aspirin. Will sign off. Please call with questions. Assessment and Plan Discussion w patient/family: The assessment and plan as outlined above was discussed with the patient and/or family members who expressed understanding and agreement. All questions were answered. Thank you for involving us in the care of your patient. Please call with any questions. History of Present Illness History of present illness: Ms. Chavez is a 71 year old female All Systems Review: A 10-system review of systems was performed and is negative for pertinent findings except as documented above in the HPI. Physical Examination Vital Signs, Last 4 Hours Temp Pulse Resp BP Pulse Ox 07/19/17 17:01 98.2 F 83 16 143/84 96 Results 07/19/17 04:47 07/18/17 03:28 Lab Results 07/19/17 04:47 WBC 6.6 Hgb 12.7 D Hct 39.2 Plt Count 244
--- NOTE | 2017-07-19 16:29 | EEG/EMG/Oth Biometrics Report ---
EEG Procedure Report Date of procedure: 07/19/17 EEG Procedure: Routine EEG Procedure Note: Routine 18-channel digital EEG was obtained to rule out any seizure activity or focal abnormalities. FINDINGS: Background rhythm during awake stage shows well-organized, well- developed, average voltage 8 to 9 hertz alpha activity in the posterior regions. It blocks with eye opening and it is bilaterally synchronous and symmetrical. No [id number] discharges or any lateralizing abnormalities are seen. Photic stimulation did not produce any abnormalities. Hyperventilation was performed for 3 minutes. No abnormalities were found during the procedure. Intermittent EMG artifacts were seen. Stage II sleep was not achieved. IMPRESSION: Normal awake study. No epileptiform discharges or any other paroxysmal activities or focal abnormalities seen. Clinical correlation is recommended.
--- NOTE | 2017-07-19 16:38 | Discharge Summary ---
Date of Encounter: 07/19/17 Time of Encounter: 15:20 - Discharge Diagnosis (1) Syncope and collapse Priority: Primary Status: Acute Comments: She has been evaluated by neuro and cardiology, no etiology for syncopal episode. Most likely due to ingestion of cold medicine and inadequate hydration and po intake. (2) Lightheaded Priority: Secondary Status: Resolved (3) URI (upper respiratory infection) Priority: Secondary Status: Acute Comments: Pt states that she was taking cold medicine and not eating or drinking well, this could have precipitated the syncopal episode. Encouraged pt to not take that cold medication anymore and to try Claritin and Flonase, as well as maintaining adequate hydration and po intake. Lungs are clear, pt has clear rhinorrhea, most likely viral, symptoms onset about 3 days prior to arrival. She has been treated with Zithromax while she was here, will continue short course to complete treatment only. Qualifiers: URI type: unspecified viral URI Qualified Code(s): J06.9 - Acute upper respiratory infection, unspecified; B97.89 - Other viral agents as the cause of diseases classified elsewhere; B97.89 - Other viral agents as the cause of diseases classified elsewhere (4) Paroxysmal a-fib Priority: Secondary Status: Chronic (5) DVT prophylaxis Priority: Secondary Status: Acute Comments: Lovenox SQ - Discharge Medications Prescriptions: GuaiFENesin ER [Mucinex] 600 mg PO BID PRN #30 tbbp.12hr PRN Reason: Cough Loratadine [Claritin] 10 mg PO DAILY #30 capsule Saline Nasal [place] [Wilkin Nasal [place]] 44 ml NS Q4H PRN #1 bottle PRN Reason: Congestion Home Medications: Aspirin Enteric Coated [Aspirin EC] 81 mg PO DAILY 08/20/15 [History] Cinnamon Bark [Cinnamon] 500 mg PO DAILY 08/20/15 [History] [place] Oil/[place]-3 Fatty Acids [Fish Oil 500 mg Softgel] 1 each PO DAILY [History] TraMADol [Ultram] 50 mg PO BID PRN 08/20/15 [History] Ubidecarenone [Co Q-10] 10 mg PO DAILY 08/20/15 [History] Calcium Carbonate/Vitamin D3 [Calcium 500-Vit D3 200 Tablet] 1 each PO DAILY 08/25 [History] Esomeprazole Magnesium [Nexium 24Hr] 22.3 mg PO DAILY 05/19/17 [History] Multivitamin [Multi-Day Vitamins] 1 each PO DAILY 05/19/17 [History] GuaiFENesin ER [Mucinex] 600 mg PO BID PRN #30 tbbp.12hr 07/19/17 [Rx] Loratadine [Claritin] 10 mg PO DAILY #30 capsule 07/19/17 [Rx] Saline Nasal [place] [Wil[place] Nasal [place]] 44 ml NS Q4H PRN #1 bottle 07/19/17 [Rx] Allergies/Adverse Reactions: 3 Allergy/AdvReac Type Severity Reaction Status Date / Time No Known Allergies Allergy Verified 08/20/15 15:24 Procedures/tests Complete & Pending: Procedures Performed prior 72 hours Category Date Time Status MR angio neck wo con [MR] Routine MRI 07/18/17 18:35 Completed MR head/brain wo con [MR] Routine MRI 07/18/17 18:35 Completed EV echocardiogram Routine Y 07/18/17 14:01 Completed Date of admission: 07/17/17 06:10 Primary care physician: Hi Haney MD Consults: 07/17/17 07:50 Consult to Physical Therapy [CONS] Routine Comment: Evaluate, develop and implement POC Reason for Consult: dizziness and syncope 07/18/17 15:09 Consult to Neurology [CONS] Routine Consulting Provider: [facility] Reason for Consult: Possible new onset seizure vs arrhythmia. Syncopal episode at work, reports blurred vision and lightheadedness prior to. No postictal. +Loss of bowel and bladder. Time Notified: 15:14 Call Completed: Yes 07/18/17 18:37 Consult to Cardiology [CONS] Routine Comment: Consulting Provider: [facility] Reason for Consult: syncopal episode. New onset seizure vs arrhythmia. Neuro is on board as well, testing ordered. Pt with prior history of ablation in 10/24, denies chest pain, trops negative. Call Completed: No 07/19/17 11:33 Consult to Interpret Exam [CONS] Routine Consulting Provider: Marilu Trejo I Consult to Interpret Exam: Interpret EEG Discharging clinician: Delia Kiser Anticipated date of discharge: 07/19/17 - Patient Status Disposition: Home, Self-Care Functional capacity at discharge: independent ambulation Overall status at discharge: patient is back to baseline - Discharge Instructions Follow Up With: Hi Haney MD [Primary Care Provider] - 08/01/17 8:30 am Additional Instructions: Follow up with your PCP in the next 7-10 days for a follow up visit. Return to the ER as needed for any other problems or concerns, or if your symptoms return or worsen. Take your normal medications as directed. Do not take the same cold medicine again, take Claritin and use saline nasal spray for congestion, Mucinex for cough Resume your normal activities as tolerated. - Diet and Activity Activity: increase activity as tolerated Diet: advance to your usual diet Hospital course: Ms. Chavez is a 71 year old female with past medical history of paroxysmal A. fib , GERD, and hyperlipidemia who presented to the emergency department after syncopal episode at work. Patient states that she has recently had a URI has been taking cold medicine [id number], she also reports decreased by mouth intake of food and fluid. Patient was at work at 2:30 AM and had a syncopal episode where she was incontinent of bowel and bladder. There ispostictal period afterwards. She denies any warning that this is going to happen. She said that she felt like she was looking through a glass or prism and had some brief lightheadedness, the symptoms lasted approximately 3-4 seconds prior to syncopal episode. Today she tells me that she has had these symptoms before, however has not had the syncopal episode previously. EKG in the emergency department showed sinus rhythm with rate of 82, ID interval 164, QRS 85, QTC 386. Chest x-ray was negative. 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 EMG was negative. Patient has been seen by cardiology and neurology, both of which feel that neither is the basic etiology for the syncopal episode. Exam was most likely related to dehydration and use of [id number] cold medicine with decreased by mouth food and fluid intake. Vital signs are stable and within normal limits ARE stable and within normal limits. Patient is ready for discharge. - Time Spent with Patient Total time spent providing and/or coordinating discharge services: Less than 30 minutes - Constitutional Vitals: Temp Pulse Resp BP Pulse Ox 98.3 F 78 17 119/76 93 07/19/17 11:26 07/19/17 11:26 07/19/17 11:26 07/19/17 11:26 07/19/17 11:26 General appearance: Present: cooperative, A&O X 3, pleasant, no acute distress, answers questions appropriately - Head Head exam: Present: atraumatic, normal inspection, normocephalic - Eye Eye exam: Present: normal appearance, conjuntiva pink, sclera anicteric - Neck Neck exam general surgery: Present: normal inspection, supple, trachea midline. Absent: lymphadenopathy, tenderness - Respiratory Respiratory exam: Present: chest wall tenderness, CTAB. Absent: accessory muscle use, rales, rhonchi, wheezes - Cardiovascular Cardiovascular exam: Present: RRR, +S1, +S2. Absent: diastolic murmur, gallop, rubs, systolic murmur - GI/Abdominal GI/Abdominal exam: Present: normal bowel sounds, soft. Absent: distended, hepatomegaly, tenderness - Extremities Exam Extremities exam: Present: normal capillary refill, warm, radial pulses palpable and symmetrical. Absent: calf tenderness, cyanotic, pedal edema, tenderness - Neurological Exam Neurological exam: Present: alert, oriented X3, no focal deficits, strengths equal and symetr throughout. Absent: facial droop, speech deficit - Skin Skin exam: Present: dry, intact, normal color, warm. Absent: rash
[2017-07-19 16:53] LABS: Hemoglobin A1C 5.5 %
[2017-07-19 17:04] VITALS: BP 143/84
== END 2017-07-19 17:20 | disposition home or self-care (01) ==
LOC: 3BNU 03:30 → EMEROO 03:30 → 3BNU 06:39
PROVIDERS: ADMIT Pediatrics; ATTEND Registered Nurse